=== PATIENT | female | born 1985 | race Caucasian/White ===

== ENCOUNTER 2019-06-04 14:26 | Emergency (ER) | payer OTHER, SELFPAY ==
[2019-06-04 16:21] VITALS: BP 134/55; PULSE 97; RESP 16; O2SAT 100
--- NOTE | 2019-06-04 16:51 | ED.DENTAL ---
HPI - Dental/Oral General Chief complaint: Dental/Oral Stated complaint: toothache/facial swelling Time Seen by Provider: 06/04/19 16:46 Source: patient Mode of arrival: ambulatory Limitations: no limitations History of Present Illness HPI Narrative: A 34 y/o female pt presents to the ED, with c/o tooth pain that began on Sunday (2 days ago). Pt states she tried getting into a dental clinic to get Abx for toothache but they were unable to get her in until Sunday and she will be out of town. She was seen at Urgent Care yesterday and was prescribed Ibuprofen and Augmentin, however this AM she woke up with worsening pain and swelling to the rt side of her mouth. Pt denies any significant PMHx. Complaint: tooth pain Location: Tooth # (30) Onset (ago): day(s) (2) Duration: worsening Relieving factors: nothing Associated symptoms: gum swelling Treatment prior to arrival: oral analgesic (Ibuprofen) Related Data Home Medications Medication Instructions Recorded Confirmed alprazolam 06/04/19 06/04/19 amoxicillin-pot clavulanate tablet 06/04/19 fluoxetine mg 06/04/19 ibuprofen 06/04/19 Allergies Allergy/AdvReac Type Severity Reaction Status Date / Time Sulfa (Sulfonamide Allergy Unknown Unknown Verified 06/04/19 16:43 Antibiotics) Review of Systems Review of Systems: All systems reviewed & are unremarkable except as noted in HPI and below Constitutional: Constitutional: Reports other (dental/mouth swelling) ENT: Reports dental pain and Reports other (tooth abscess) PMFSH Past Medical History Medical History (Updated 06/04/19 @ 17:30 by Eder Perez MD) Depression Irritable bowel Surgical History Surgical History (Updated 06/04/19 @ 17:13 by Viola Beavers WISErg) No significant past surgical history Social History Social History (Updated 06/04/19 @ 17:13 by Viola Beavers WISErg) Smoking status: Smoker, status unknown Gender identity (if verbalized by the patient): Female Exam Const: General: healthy appearing, no acute distress and alert Nutritional Appearance: well nourished Orientation/consciousness: patient oriented x3 HENMT: Other: Swelling over right mandible. Fluctuant area at the base of tooth #30 Resp: Effort & Inspection: normal respiratory effort Auscultation: clear to auscultation bilaterally Cardio: Rate: regular rate Rhythm: regular rhythm Skin: General skin exam: normal color Neuro: General: patient oriented x3 and moves all extremities Speech: normal speech Course Vital Signs Vital signs: Vital Signs Pulse Rate 97 06/04/19 16:21 Respiratory Rate 16 06/04/19 16:21 Blood Pressure 134/55 L 06/04/19 16:21 Pulse Oximetry 100 06/04/19 16:21 Pulse Rate 97 06/04/19 16:21 Respiratory Rate 16 06/04/19 16:21 Blood Pressure 134/55 L 06/04/19 16:21 Pulse Oximetry 100 06/04/19 16:21 Procedures Abscess I/D oral: Date of Incision: 06/04/19 Time of Incision: 17:29 Side (if applicable): right Local Anesthetic: lidocaine 1%, bupivacaine 0.5% and with epi Amount of anesthesia used (mL): 4 Technique: needle aspiration Amount of fluid expressed (mL): 2 Packing used?: none I&D Results: Pus MDM - Dental/Oral Differential Diagnosis Differential diagnosis: Likely dental abscess Medical Records Attestation: I reviewed the patient's medical records. Discharge Plan Discharge Clinical Impression: Dental abscess Patient Disposition: Home, Self-Care Condition: Stable Instructions: Antibiotic Form, Dental Abscess (ED) Prescriptions: No Action fluoxetine 40 mg capsule RF: 0 ibuprofen 800 mg tablet RF: 0 alprazolam 1 mg tablet RF: 0 amoxicillin-pot clavulanate 875-125 mg tablet RF: 0 Follow-up/Referrals: PHYSICIAN,COLD HEADER OPERATOR [Non-Staff] - Stand Alone Forms: Work/School Release IP Discharge Date/Time: 06/04/19 18:22
== END 2019-06-04 18:22 | disposition home or self-care (01) ==
LOC: ANHED 17:32
PROVIDERS: Emergency Provider Emergency Medicine
DX: K04.7 Periapical abscess without sinus (principal); F32.9 Major depressive disorder, single episode, unspecified
CPT/HCPCS: 41800; 99282

== ENCOUNTER 2020-05-13 11:06 | Emergency (ER) | payer OTHER, SELFPAY ==
--- NOTE | ~2020-05-13 | XR_ITS ---
EXAMINATION: XR abdomen/kub 1V INDICATION: Right flank pain TECHNIQUE: Supine views of the abdomen were obtained on 2 radiographs. COMPARISON: CT from today FINDINGS: Bowel contents obscure visualization of the small kidney stones seen on today's CT examinat ion. There is a phlebolith of the left pelvis. The bowel gas pattern is normal. The visualized osseou s structures are unremarkable. IMPRESSION: 1. No radiographic correlate for the patient's symptoms. Reviewed, dictated and finalized at location A. THERAPIST
--- NOTE | ~2020-05-13 | CT_ITS ---
EXAMINATION: CT abdomen pelvis wo con DATE: 05/13/2020 12:34 INDICATION: Right flank pain TECHNIQUE: Computed tomography (CT) of the abdomen and pelvis was performed without intravenous contr ast. The dose-length product (DLP) was 370.77 mGy-cm. Automated exposure control and iterative recons truction technique were employed. 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 The heart size is normal. The liver, spleen, pancreas, and adrenal glands are normal. Sto grayson are present in the nondistended gallbladder. Nonobstructing stones in the lower pole of the right kidney measure up to 2 mm. There is a 4 mm nonobstructing stone of the left kidney. No stones are pr esent in the ureters or bladder. There is no hydronephrosis or hydroureter. The appendix is normal. N o pathologically enlarged abdominal or pelvic lymph nodes are identified. There is no free intraperit troncoso gas or evidence of bowel obstruction. IMPRESSION: 1. Bilateral nonobstructing nephrolithiasis. No hydronephrosis or hydroureter. 2. Cholelithiasis without additional findings of cholecystitis. Reviewed, dictated and finalized at location A. L PLATER
[2020-05-13 11:23] VITALS: BP 119/72; PULSE 79; RESP 16; TEMP 36.2; O2SAT 98
[2020-05-13 11:33] LABS: Basophils Percent Auto 0.5 % (0.2-1.2); Eosinophils Absolute Auto 0.2 K/mm3 (0-0.3); Eosinophils Percent Auto 1.8 % (0-4.4); Hematocrit 42.2 % (37.0-47.0); Hemoglobin 14.1 g/dL (12.0-15.0); Immature Granulocyte Absolute 0.01 K/mm3 (0.00-0.031); Immature Granulocyte Percent A 0.1 % (0-0.5); Lymphocytes Absolute Auto 2.27 K/mm3 (0.9-3.2); Lymphocytes Percent Auto 25.8 % (18.3-44.2); Mean Corpuscular HGB Conc 33.4 g/dl (32-36); Mean Corpuscular Hemoglobin 29.6 pg (26-34); Mean Corpuscular Volume 88.7 fl (80-100); Mean Platelet Volume 9.4 fl (7.4-10.4); Monocytes Absolute Auto 0.5 K/mm3 (0.1-0.6); Monocytes Percent Auto 5.6 % (2.6-8.5); Neutrophils Absolute Auto 5.8 K/mm3 (1.3-6.7); Neutrophils Percent Auto 66.2 % (45.5-73.1); Platelet Count Result 333 k/mm3 (150-375); Red Blood Count 4.76 M/mm3 (4.2-5.4); Red Cell Distribution Width 12.6 % (11.5-14.5); White Blood Count 8.8 K/mm3 (4.5-10.0)
[2020-05-13 11:43] LABS: Add Urine Microscopic? YES; Amorphous Sediment Urine Few; Appearance Urine Clear (Clear); Bacteria Urine Trace /hpf; Bilirubin Urine Negative (Negative); Blood Urine 3+ (Negative); Color Urine Yellow (Yellow); Glucose Urine UA Negative (Negative); Ketones Urine Negative (Negative); Leukocyte Esterase Ur Negative LEU/UL (Negative); Mucus Urine Rare /lpf; Nitrate Urine Negative (Negative); Protein Urine 1+ mg/dL (Negative); RBC Urine 21-50 /hpf (0-2); Specific Grav Ur 1.014 (1.001-1.035); Squamous Epithelial Cell Urine Few /hpf (Few); Urobilinogen Urine Negative mg/dL (<2.0); WBC Urine 0-3 /hpf
[2020-05-13 11:47] LABS: Anion Gap 5 mmol/L (8-16); Blood Urea Nitrogen 10 mg/dL (7-17); Calcium 8.9 mg/dL (8.4-10.2); Carbon Dioxide 28 mmol/L (22-30); Chloride 107 mmol/L (98-107); Estimated CRCL calculation 135 ml/min; Estimated Glomerular Filt Rate > 60; Glucose 104 mg/dL (65-105); Sodium 140 mmol/L (137-145)
[2020-05-13] MEDS: KETOROLAC 30 MG/ML VIAL (*BKC) IV PUSH (13:16)
[2020-05-13 13:39] LABS: Alanine Aminotransferase 33 U/L (4-35); Alkaline Phosphatase 84 U/L (38-126); Aspartate Amino Transferase 28 U/L (14-36); Bilirubin,Total 0.5 mg/dL (0.2-1.3)
--- NOTE | 2020-05-13 13:40 | ED.CHESTPAIN ---
HPI - Chest Pain General Chief Complaint: Urogenital-Female Stated Complaint: flank pain Time Seen by Provider: 05/13/20 11:48 Source: patient Mode of arrival: ambulatory Limitations: no limitations History of Present Illness HPI narrative: Patient is a 35-year-old female who presents to emergency department for evaluation of right-sided CVA pain for the last day patient notes began as an aching pain patient denies any injury or trauma does note history of urolithiasis. Patient denies any diarrhea vaginal complaints or urinary symptoms or URI symptoms. On arrival patient in the room in no distress resting comfortably. Patient has taken ibuprofen with some improvement Related Data Home Medications Medication Instructions Recorded Confirmed alprazolam 06/04/19 06/04/19 fluoxetine mg 06/04/19 pantoprazole PO 05/13/20 05/13/20 Allergies Allergy/AdvReac Type Severity Reaction Status Date / Time Sulfa (Sulfonamide Allergy Unknown Unknown Verified 06/04/19 16:43 Antibiotics) Review of Systems Review of Systems: All systems reviewed & are unremarkable except as noted in HPI and below PMFSH Past Medical History Medical History (Updated 05/13/20 @ 13:50 by Sabas Galvez PA-C) Depression Irritable bowel Urolithiasis Surgical History Surgical History No significant past surgical history Social History Social History Smoking status: Smoker, status unknown Gender identity (if verbalized by the patient): Female Exam Narrative: Exam Narrative: GENERAL: Well-appearing, well-nourished, and in no acute distress. HEAD: Normocephalic, atraumatic. EYES: PERRLA and EOMI. ENT: Nares clear, no rhinorrhea or epistaxis. Mucous membranes moist. CHEST: Clear to auscultation. No respiratory distress. No wheezes rales or rhonchi HEART: Regular rate and rhythm. No murmur heard. Normal peripheral pulses. ABDOMEN: Soft, nontender, nondistended EXTREMITIES: Normal range of motion. No edema. SKIN: Warm, dry, no rash. NEURO: No focal deficits. Alert and oriented x3. PSYCH: Normal mood and affect. Course Course Emergency Course: Patient in the room in no distress aware of case findings treatment plan diagnosis agreeing to follow-up as directed with primary care patient with potentially past urolithiasis is currently on her menses which could also explain the blood in her urine. No other high risk changes in the imaging or evaluation patient's pain well controlled Vital Signs Vital signs: Vital Signs Temperature 97.2 F L 05/13/20 11:23 Pulse Rate 79 05/13/20 11:23 Respiratory Rate 16 05/13/20 11:23 Blood Pressure 119/72 05/13/20 11:23 Pulse Oximetry 98 05/13/20 11:23 Temperature 97.2 F L 05/13/20 11:23 Pulse Rate 79 05/13/20 11:23 Respiratory Rate 16 05/13/20 11:23 Blood Pressure 119/72 05/13/20 11:23 Pulse Oximetry 98 05/13/20 11:23 MDM - Chest Pain MDM Narrative Medical decision making narrative: Patient evaluated in the emergency department felt to likely have passed a kidney stone as etiology for his symptoms pain well controlled afebrile nontoxic-appearing no distress felt appropriate for outpatient reevaluation Lab Data Result diagrams: 05/13/20 11:27 05/13/20 11:27 Labs: Lab Results 05/13/20 05/13/20 05/13/20 Range/Units 11:27 11:27 11:27 WBC 8.8 (4.5-10.0) K/mm3 RBC 4.76 (4.2-5.4) M/mm3 Hgb 14.1 (12.0-15.0) g/dL Hct 42.2 (37.0-47.0) % MCV 88.7 (80-100) fl MCH 29.6 (26-34) pg MCHC 33.4 (32-36) g/dl RDW 12.6 (11.5-14.5) % Plt Count 333 (150-375) k/mm3 MPV 9.4 (7.4-10.4) fl Immature Gran % (Auto) 0.1 (0-0.5) % Neut % (Auto) 66.2 (45.5-73.1) % Lymph % (Auto) 25.8 (18.3-44.2) % [place] % (Auto) 5.6 (2.6-8.5) % Eos % (Auto) 1.8 (0-4.4) % Baso % (A
[2020-05-13 14:13] VITALS: BP 139/68; PULSE 84; RESP 17; O2SAT 98
== END 2020-05-13 14:15 | disposition home or self-care (01) ==
PROVIDERS: Emergency Medicine Emergency Medical Services; Emergency Provider Emergency Medicine; PCP Family Medicine
DX: R10.9 Unspecified abdominal pain (principal); K58.9 Irritable bowel syndrome, unspecified; F32.9 Major depressive disorder, single episode, unspecified; N20.0 Calculus of kidney; Z87.442 Personal history of urinary calculi; K80.20 Calculus of gallbladder without cholecystitis without obstruction
CPT/HCPCS: 36415; 74018; 74176; 80048; 80076; 81001; 81025; 85025; 96374; 96375; 99284; J0131; J1885

== ENCOUNTER 2022-12-30 13:45 | Emergency (ER) | payer SELFPAY ==
[2022-12-30 13:50] VITALS: BP 131/90; PULSE 93; RESP 20; TEMP 36.5; O2SAT 98
--- NOTE | 2022-12-30 14:08 | ECG_ITS ---
Measurements Intervals [place] Rate: 85 P: 50 LA: 152 QRS: 61 QRSD: 97 T: 35 QT: 372 QTc: 443 Interpretive Statements SINUS RHYTHM WITH SINUS ARRHYTHMIA ST ELEVATION IN DIFFUSE LEADS- CONSIDER PERICARDITIS OR EARLY REPOLARIZATION ABNORMALITY BASELINE ARTIFACT- I, II, III, AVR, AVL, AVF ABNORMAL ECG NO PREVIOUS ECG AVAILABLE FOR COMPARISON Electronically Signed On 12-30-2022 20:45:14 CDT by Jose Hurley D.O.
[2022-12-30 14:41] LABS: Glucose Point of Care 79 mg/dl (65-105)
[2022-12-30 14:46] LABS: Basophils Absolute Auto 0.05 K/mm3 (0.00-0.10); Basophils Percent Auto 0.5 % (0.0-1.0); Eosinophils Absolute Auto 0.15 K/mm3 (0.02-0.50); Eosinophils Percent Auto 1.6 % (1.0-6.0); Hematocrit 42.9 % (35.0-49.0); Hemoglobin 15.1 g/dL (12.0-15.0); Immature Granulocyte Absolute 0.04 K/mm3 (0.00-0.00); Immature Granulocyte Percent A 0.4 % (0.0-0.0); Lymphocytes Absolute Auto 2.27 K/mm3 (1.10-4.50); Lymphocytes Percent Auto 24.9 % (18.0-42.0); Mean Corpuscular HGB Conc 35.2 g/dL (32.0-36.0); Mean Corpuscular Hemoglobin 30.6 pg (27.0-31.0); Mean Corpuscular Volume 86.8 fL (78.0-102.0); Mean Platelet Volume 9.7 fl (9.2-11.8); Monocytes Absolute Auto 0.59 K/mm3 (0.10-0.90); Monocytes Percent Auto 6.5 % (2.0-11.0); Neutrophils Percent Auto 66.1 % (50.0-70.0); Platelet Count Result 322 K/mm3 (150-420); Red Blood Count 4.94 M/mm3 (4.20-5.40); Red Cell Distribution Width 11.9 % (11.6-14.4); White Blood Count 9.1 K/mm3 (4.8-10.8)
[2022-12-30 14:58] LABS: Amphetamine Screen Urine Negative (Negative); Appearance Urine Clear (Clear); Barbiturate Screen Urine Negative (Negative); Benzodiazepines Screen Urine Positive (Negative); Bilirubin Urine Negative (Negative); Blood Urine Negative (Negative); Cannabinoid Screen Urine Positive (Negative); Cocaine Screen Urine Negative (Negative); Color Urine Light Yellow (Yellow); Glucose Urine UA Negative (Negative); Ketones Urine Negative (Negative); Leukocyte Esterase Ur Negative LEU/UL (Negative); Methadone Screen Urine Negative (Negative); Nitrate Urine Negative (Negative); Opiate Screen Urine Negative (Negative); Phencyclidine Screen Urine Negative (Negative); Protein Urine Negative (Negative); Specific Grav Ur 1.015 (1.010-1.020)
[2022-12-30 15:01] LABS: Add Urine Microscopic? NO
[2022-12-30 15:05] LABS: Alanine Aminotransferase 25 U/L (14-59); Albumin Level 3.9 g/dL (3.4-5.0); Alkaline Phosphatase 95 U/L (46-116); Anion Gap 14 mmol/L (8-16); Aspartate Amino Transferase 13 U/L (15-37); Bilirubin,Total 0.8 mg/dL (0.00-1.00); Blood Urea Nitrogen 6 mg/dL (7-18); Calcium 9.4 mg/dL (8.5-10.1); Carbon Dioxide 23 mmol/L (21-32); Chloride 105 mmol/L (98-108); Estimated CRCL calculation 108 ml/min; Estimated Glomerular Filt Rate > 60; Glucose 96 mg/dL (70-99); Osmolality Calculated 291 mOsm/kg (285-295); Potassium 3.6 mmol/L (3.5-5.1); Salicylate 2.6 mg/dL (2.8-20.0); Sodium 142 mmol/L (136-145); Thyroid Stimulating Hormone 1.05 uIU/mL (0.36-3.74); Total Protein 7.2 g/dL (6.4-8.2)
[2022-12-30 15:08] LABS: Acetaminophen < 2 ug/mL (10-30); Ethanol < 3 mg/dL (0-6)
[2022-12-30 15:11] LABS: SARS-CoV-2 Ag Negative (Negative)
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
[2022-12-30] MEDS: ALPRAZolam (*CRX) 0.5 MG TABLET PO (15:51)
[2022-12-30 17:44] VITALS: BP 128/86; PULSE 88; RESP 20; TEMP 36.7; O2SAT 98
--- NOTE | 2022-12-30 17:46 | PC.NURSE ---
On 12/30/22, the student, [CATIA GIRON], provided care and completed [facility] documentation on this patient. I have reviewed the student's documentation and agree with the findings.
== END 2022-12-30 17:45 | disposition home or self-care (01) ==
PROVIDERS: Emergency Provider Emergency Medicine; PCP Nurse Practitioner Family
DX: F32.A Depression, unspecified (principal); F17.210 Nicotine dependence, cigarettes, uncomplicated; Z79.899 Other long term (current) drug therapy; Z20.822 Contact with and (suspected) exposure to COVID-19
CPT/HCPCS: 36415; 80053; 80307; 81003; 82948; 84443; 85025; 87426; 93005; 99283; A9270; C9803

== ENCOUNTER 2023-08-21 19:05 | Outpatient (RCR) | payer OTHER, SELFPAY ==
[2023-08-21] VITALS (16 sets, daily range): BP systolic 101–117; BP diastolic 45–58; PULSE 89–103; O2SAT 95–100
--- NOTE | 2023-08-21 20:45 | PC.NURSE ---
Called Dr. Mary Alice Stokes, update on pt, decreased movement upon arrival, tracing, blood pressure, and feeling baby move. Orders received to discharge pt with instructions on when to return to the unit.
--- NOTE | 2023-08-21 20:52 | PC.NURSE ---
Pt discharged with instructions to return to the unit with vaginal bleeding, leaking fluid, contractions, and decreased movement, pt verbalizes understanding, no other questions.
== END 2023-11-19 23:59 | disposition home or self-care (01) ==
LOC: ANHOBOP 19:05
PROVIDERS: PCP Nurse Practitioner Family; Visit Provider Obstetrics & Gynecology
DX: O36.8190 Decreased fetal movements, unspecified trimester, not applicable or unspecified (principal)
CPT/HCPCS: 59025

== ENCOUNTER 2023-11-16 03:36 | Inpatient (IN) | payer OTHER, SELFPAY ==
[2023-11-16] VITALS (123 sets, daily range): BP systolic 96–159; BP diastolic 33–123; PULSE 91–130; RESP 18; TEMP 36.8–37.3; O2SAT 96–100; BMI 37.4
[2023-11-16 04:14] LABS: Basophils Percent Auto 0.3 % (0.2-1.2); Eosinophils Absolute Auto 0.1 K/mm3 (0-0.3); Eosinophils Percent Auto 0.5 % (0-4.4); Hematocrit 36.7 % (37.0-47.0); Hemoglobin 12.4 g/dL (12.0-15.0); Immature Granulocyte Absolute 0.05 K/mm3 (0.00-0.031); Immature Granulocyte Percent A 0.4 % (0-0.5); Lymphocytes Absolute Auto 1.93 K/mm3 (0.9-3.2); Lymphocytes Percent Auto 17.1 % (18.3-44.2); Mean Corpuscular HGB Conc 33.8 g/dl (32-36); Mean Corpuscular Hemoglobin 29.2 pg (26-34); Mean Corpuscular Volume 86.4 fl (80-100); Mean Platelet Volume 10.4 fl (7.4-10.4); Monocytes Absolute Auto 0.8 K/mm3 (0.1-0.6); Monocytes Percent Auto 6.8 % (2.6-8.5); Neutrophils Absolute Auto 8.4 K/mm3 (1.3-6.7); Neutrophils Percent Auto 74.9 % (45.5-73.1); Platelet Count Result 276 k/mm3 (150-375); Red Blood Count 4.25 M/mm3 (4.2-5.4); Red Cell Distribution Width 14.2 % (11.5-14.5); White Blood Count 11.3 K/mm3 (4.5-10.0)
[2023-11-16] MEDS: AMPICILLIN 2 GM/NS 100 ML 2 GM/100 ML BAG IVPB (04:27)
[2023-11-16] MEDS: LACTATED RINGERS 500 ML 999 ML IV CONT (04:29)
--- NOTE | 2023-11-16 04:52 | LDADM ---
This patient, Hedy Henao, was admitted to Labor/Delivery/Recovery 106 on 11/16/23 at 03:36. Plans for labor, pain management and were discussed with patient. Patient/family oriented to hospital policies and general routines including ID bracelet, bed and alarms, visiting hours, pain management, procedures, bathroom and other care routines, personal items, smoking policy, room service/diet and guest tray routines, security routines, and visiting hours. Patient/Family are encouraged to report perceived risks to care and to ask questions if they do not understand what they are told or what they should do. See [facility] for further documentation.
[2023-11-16 05:00] LABS: Rapid Plasma Reagin Non-Reactive (NonReactive)
--- NOTE | 2023-11-16 05:34 | WPDANESEPP ---
Anes - Eval Pre Procedure Procedure: labor epidural Date/Time: 11/16/23 05:34 Surgeon: la Preop Diagnosis: pain during labor Pre Op Diagnosis: Contractions Patient Data Age: 38 Gender: F Height: 1.75 m Weight: 115 kg Last Vital Signs Pulse 100 11/16/23 05:33 BP 141/74 H 11/16/23 05:33 Pulse Ox 100 11/16/23 05:32 O2 Del Method Room Air 11/16/23 04:52 Allergies Allergy/AdvReac Type Severity Reaction Status Date / Time Sulfa (Sulfonamide Allergy Unknown Unknown Verified 11/09/23 13:20 Antibiotics) Home Medications Medication Instructions Recorded Confirmed Type bupropion HCl 300 mg 24 hr tablet, 300 mg PO DAILY 12/30/22 11/09/23 History extended release vits no.126-ferrous fum 1 tablet PO DAILY 11/09/23 11/09/23 History 28 mg iron-folic acid 800 mcg tablet (Classic ) sertraline 100 mg tablet 100 mg PO DAILY 11/09/23 11/09/23 History Laboratory Tests 11/16/23 04:09 WBC 11.3 H K/mm3 (4.5-10.0) RBC 4.25 M/mm3 (4.2-5.4) Hgb 12.4 g/dL (12.0-15.0) Hct 36.7 L % (37.0-47.0) MCV 86.4 fl (80-100) MCH 29.2 pg (26-34) MCHC 33.8 g/dl (32-36) RDW 14.2 % (11.5-14.5) Plt Count 276 k/mm3 (150-375) MPV 10.4 fl (7.4-10.4) Immature Gran % (Auto) 0.4 % (0-0.5) Neut % (Auto) 74.9 H % (45.5-73.1) Lymph % (Auto) 17.1 L % (18.3-44.2) [place] % (Auto) 6.8 % (2.6-8.5) Eos % (Auto) 0.5 % (0-4.4) Baso % (Auto) 0.3 % (0.2-1.2) Lymph # (Auto) 1.93 K/mm3 (0.9-3.2) [place] # (Auto) 0.8 H K/mm3 (0.1-0.6) Eos # (Auto) 0.1 K/mm3 (0-0.3) Baso # (Auto) 0.0 K/mm3 (0.0-0.1) Abs Immat Gran (auto) 0.05 H K/mm3 (0.00-0.031) Absolute Neuts (auto) 8.4 H K/mm3 (1.3-6.7) Absolute Nucleated RBC 0.000 K/mm3 (0.0-0.012) Nucleated RBC % 0.0 % (0.0-0.2) RPR Non-reactive (NonReactive) HIV 1&2 Ab/P24 Ag 4thGn Pending Blood Type A Positive Antibody Screen Negative Patient hx anesthesia problems: none Family hx anesthesia problems: none Results Review: All pre-operative results and documents have been reviewed as part of the pre-operative evaluation. [facility] Past Medical History Medical History (Updated 11/16/23 @ 05:35 by Darlene Wahl CRNA) Anxiety Depression Irritable bowel Obesity (BMI 30-39.9) Urolithiasis Surgical History Surgical History No significant past surgical history Family History Family History (Updated 11/09/23 @ 13:25 by Qing Diaz RN) Mother Multiple sclerosis Congestive heart failure Diabetes mellitus Sibling Multiple sclerosis Social History Social History Smoking packs per day: 0.5 Smoking cigarettes per day: 10.0 Years smoked: 16 Smoking pack-years: 8.00 Smoking status: Former smoker Substance use: current Substance use type: marijuana Do You Feel Safe in your Home?: Yes Lack of Transportation: No Lack of Food: Never True Current Housing: I Have Housing Concerned About Future Housing: No Difficulty Paying Gas/Electric Bills: No Difficulty Paying for Meds: No Currently Unemployed: No Education: High School Diploma/GED Difficulty w/ Childcare or Family Care: No Gender identity (if verbalized by the patient): Female Spiritual care concerns: No Exam Day of Procedure 11/16/23 05:34
[2023-11-16 06:13] LABS: HIV 1/2 Ab P24 Ag 1.38
[2023-11-16 06:21] LABS: HIV 1/2 Ab P24 Ag Result Reactive (Negative); HIVc Retest 1 1.31; HIVc Retest 2 1.38
--- NOTE | 2023-11-16 06:47 | PM.OBPRVD ---
OB - Vaginal Delivery Note Procedure Delivery date: 11/16/23 Induction method: None Delivery monitor: External FHT and External Uterine Route of delivery: Episiotomy description: None Laceration Description: None Quantitative Blood Loss (ml): 61 Anesthesia type: Epidural Disposition: Floor Complications: No immediate complications Narrative: The patient was admitted in active labor proceeded quickly from 5cm to complete was cold and she pushed and delivered the head spontaneously in the KALPESH position. Anterior posterior shoulder delivered spontaneously. Cord clamped x2 cut advanced off the table crying. Twenty-two Pitocin placed in a medial from the uterus. The baby did require a code home although it had great heart rate and cry on delivery. Mom and baby doing okay at the moment: Baby Date of : 11/16/23 Time of : 06:34 Gestational Age by Date: 37 Infant gender: Female presentation: vertex position: Left Occiput Anterior Placenta delivery description: Spontaneous Cord Vessel Description: 3 Vessels
--- NOTE | 2023-11-16 06:50 | PM.IMHP ---
H&P: HPI History of Present Illness Date/Time: 11/16/23 06:50 Chief Complaint: Labor at 37 weeks Narrative: 38-year-old 3 1 admitted at 37 weeks in active labor. She states the has been uncomplicated PMFSH Past Medical History Medical History Anxiety Depression Irritable bowel Obesity (BMI 30-39.9) Urolithiasis Surgical History Surgical History No significant past surgical history Family History Family History Mother Multiple sclerosis Congestive heart failure Diabetes mellitus Sibling Multiple sclerosis Social History Social History Smoking packs per day: 0.5 Smoking cigarettes per day: 10.0 Years smoked: 16 Smoking pack-years: 8.00 Smoking status: Former smoker Substance use: current Substance use type: marijuana Do You Feel Safe in your Home?: Yes Lack of Transportation: No Lack of Food: Never True Current Housing: I Have Housing Concerned About Future Housing: No Difficulty Paying Gas/Electric Bills: No Difficulty Paying for Meds: No Currently Unemployed: No Education: High School Diploma/GED Difficulty w/ Childcare or Family Care: No Gender identity (if verbalized by the patient): Female Spiritual care concerns: No Meds Home Medications and Allergies Home Medications Medication Instructions Recorded Confirmed Type bupropion HCl 300 mg 24 hr tablet, 300 mg PO DAILY 12/30/22 11/09/23 History extended release vits no.126-ferrous fum 1 tablet PO DAILY 11/09/23 11/09/23 History 28 mg iron-folic acid 800 mcg tablet (Classic ) sertraline 100 mg tablet 100 mg PO DAILY 11/09/23 11/09/23 History Allergies Allergy/AdvReac Type Severity Reaction Status Date / Time Sulfa (Sulfonamide Allergy Unknown Unknown Verified 11/09/23 13:20 Antibiotics) Vital Signs Vital Signs - 24 hr 11/16/23 04:00 11/16/23 04:30 11/16/23 04:47 Temperature Pulse Rate 100 128 H Blood Pressure 114/53 L 124/74 Pulse Oximetry 100 Oxygen Delivery 11/16/23 04:52 11/16/23 04:57 11/16/23 05:00 Temperature Pulse Rate 103 H Blood Pressure 134/75 Pulse Oximetry 100 100 Oxygen Delivery 11/16/23 05:02 11/16/23 05:07 11/16/23 05:12 Temperature Pulse Rate Blood Pressure Pulse Oximetry 100 100 100 Oxygen Delivery 11/16/23 05:17 11/16/23 05:18 11/16/23 05:20 Temperature Pulse Rate 104 H 126 H Blood Pressure 124/63 143/85 H Pulse Oximetry 100 Oxygen Delivery 11/16/23 05:22 11/16/23 05:23 11/16/23 05:25 Temperature Pulse Rate 106 H 94 Blood Pressure 151/69 H 142/66 H Pulse Oximetry 100 Oxygen Delivery 11/16/23 05:27 11/16/23 05:28 11/16/23 05:30 Temperature Pulse Rate 91 96 Blood Pressure 117/72 119/85 Pulse Oximetry 100 Oxygen Delivery 11/16/23 05:32 11/16/23 05:33 11/16/23 05:35 Temperature Pulse Rate 100 99 Blood Pressure 141/74 H 143/74 H Pulse Oximetry 100 Oxygen Delivery 11/16/23 05:37 11/16/23 05:38 11/16/23 05:40 Temperature Pulse Rate 101 H 99 Blood Pressure 138/123 H 133/73 Pulse Oximetry 100 Oxygen Delivery 11/16/23 05:42 11/16/23 05:43 11/16/23 05:45 Temperature Pulse Rate 106 H 100 Blood Pressure 149/87 H 150/77 H Pulse Oximetry 99 Oxygen Delivery 11/16/23 05:47 11/16/23 05:48 11/16/23 05:50 Temperature Pulse Rate 103 H 114 H Blood Pressure 135/60 121/62 Pulse Oximetry 99 Oxygen Delivery 11/16/23 05:52 11/16/23 05:53 11/16/23 05:56 Temperature Pulse Rate 106 H 104 H Blood Pressure 150/81 H 116/97 H Pulse Oximetry 100 98 Oxygen Delivery 11/16/23 06:00 11/16/23 06:01 11/16/23 06:06 Temperature 98.2 F
[2023-11-16] MEDS: OXYTOCIN 30 UNITS/NS 500 ML 30 UNITS/500 ML BAG 125 UNITS IV CONT (07:19)
[2023-11-16 10:02] LABS: Reference Lab Test Name HIV 1/2 AB +P24 AG
--- NOTE | 2023-11-16 12:11 | OBPPTRN ---
Patient transferred to post room #288 via wheelchair. Support person present. Oriented to unit, room, information board, rooming in, admission packet and security measures. Patient verbalizes understanding.
[2023-11-16 12:43] LABS: Amphetamine Screen Urine Negative (Negative); Barbiturate Screen Urine Negative (Negative); Benzodiazepines Screen Urine Negative (Negative); Cannabinoid Screen Urine Negative (Negative); Cocaine Screen Urine Negative (Negative); Methadone Screen Urine Negative (Negative); Opiate Screen Urine Negative (Negative); Phencyclidine Screen Urine Negative (Negative)
--- NOTE | 2023-11-16 13:45 | PC.NURSE ---
Breast pump provided due to [ transfer]. Instructions given on cleaning, care, usage, that there should be no pain, pumping schedule for milk production, collection, and storage of human milk. Patient was assessed for correct placement, flange size, to pump for comfort and nipple stretching/stimulation for adequate milk production every 3 hours (8 times in 24 hours) 1-2 times at night.?Mother voiced understanding of the education shared along with mom/baby guide and the pump measurement, flange fit handout for additional resource information. Reported to the Primary RN.
--- NOTE | 2023-11-16 15:05 | PC.NURSE ---
1500. This patient Hedy left with her mom and dad, via wheelchair on a 6 hr pass to visit her daughter in the [facility]. Pass approved by Dr Bass via telephone. She pumped for 15 min before she left.
--- NOTE | 2023-11-16 20:08 | PC.NURSE ---
Patient returned from [facility] to visit that was transferred to another facility at this time. This RN reoriented patient to policies and procedures and answered any questions from patient at this time.
[2023-11-17 04:38] VITALS: BP 100/65; PULSE 87; RESP 18; TEMP 36.5; O2SAT 97
[2023-11-17] MEDS: IBUPROFEN 600 MG TABLET PO (04:46)
[2023-11-17 05:14] LABS: Hematocrit 31.7 % (37.0-47.0); Hemoglobin 10.3 g/dL (12.0-15.0)
[2023-11-17 08:00] VITALS: BP 100/77; PULSE 85; RESP 17; O2SAT 100
--- NOTE | 2023-11-17 11:11 | PC.NURSE ---
Breast pump was at bedside. Mother states that she was not given instructions on how often to pump and that she has only pumped once since infants . Education provided regarding frequency of pumping and reiterated the importance of pumping on schedule when is away. Infant was transferred to [facility]. Instructions given on cleaning, care, usage, that there should be no pain, pumping schedule for milk production, collection, and storage of human milk. Patient was assessed for correct placement, flange size, to pump for comfort and nipple stretching/stimulation for adequate milk production every 3 hours (8 times in 24 hours) 1-2 times at night. Handouts were given to patient re. pump education. Mother encouraged to record the pumping schedule on the feeding sheet.?Mother voiced understanding of the education shared along with mom/baby guide and the pump measurement, flange fit handout for additional resource information. Reported to the Primary RN.
--- NOTE | 2023-11-17 11:39 | PM.OBPNVD ---
OB - PN: Subj Subjective Date/time seen: 11/17/23 11:39 Narrative: Pain OK. Would like to be discharged. OB - PN: Obj Data Labs 11/17/23 04:43 Labs: Laboratory Results - last 24 hr 11/16/23 11/17/23 11:47 04:43 Hgb 10.3 L Hct 31.7 L Urine Opiates Screen Negative Urine Methadone Screen Negative Ur Barbiturates Screen Negative Ur Phencyclidine Scrn Negative Ur Amphetamine Screen Negative U Benzodiazepines Scrn Negative Urine Cocaine Screen Negative U Cannabinoids Screen Negative OB - PN A/P Plan day: 1 Comments: A: PPD#1, doing well. P: Home to f/u 6 weeks. Exam Psych: Other: AVSS ABD soft, nontender, fundus firm EXT nontender
--- NOTE | 2023-11-17 11:40 | PM.OBDSVD ---
DS: Admitting Diagnosis Discharge Date 11/17/23 Admitting Diagnosis IUP at 37 weeks with labor DS: Discharge Diagnosis Discharge Diagnosis (1) (normal spontaneous vaginal delivery): Code(s): O80 - Encounter for full-term uncomplicated delivery Status: Acute OB - DS: Summary Hospital Course Hospital Course: Admitted with labor. Baby was transferred to [facility]. Mom had positive rapid HIV test, but confirmatory test was negative. OB Procedures : None OB Procedures Intrapartum: Spontaneous Vag Delivery OB Procedures: : None Peripartum Data Laceration Description: None Episiotomy description: None Time Spent with Patient Time attestation: Total time spent providing and/or coordinating discharge services: DS: Data Data Completed and Pending Labs on day of discharge: Labs from last 24 hours 11/17/23 11/16/23 04:43 11:47 Hgb 10.3 L Hct 31.7 L Urine Opiates Screen Negative Urine Methadone Screen Negative Ur Barbiturates Screen Negative Ur Phencyclidine Scrn Negative Ur Amphetamine Screen Negative U Benzodiazepines Scrn Negative Urine Cocaine Screen Negative U Cannabinoids Screen Negative Discharge Plan Discharge Attending physician on discharge: Rich Bass Discharging Clinician: Rich Bass Patient Disposition: Home, Self-Care Activity: pelvic rest Diet: regular Discharge Instructions: Call or return if temperature above 100.4? F, increased abdominal pain, increased vaginal bleeding or any new problems. Stand Alone Forms: General Discharge Information Follow-up/Referrals: Rich Bass MD [Physician] - 6 Weeks Discharge Medications: New ibuprofen 600 mg tablet 600 mg PO Q6H PRN (Reason: cramps) Qty: 30 0RF Continued bupropion HCl 300 mg tablet extended release 24 hr 300 mg PO DAILY sertraline 100 mg Tablet 100 mg PO DAILY Classic 28 mg iron- 800 mcg Tablet 1 tablet PO DAILY Date of admission: 11/16/23 03:36 Primary Care Provider: Vince,Radha Simpson Admitting Provider: Rich Bass Attending physician on admission: Rich Bass Condition: Stable
--- NOTE | 2023-11-17 12:48 | PCCCNOTE ---
Care Coordination. Patient referred to CC for positive THC during . Met with mother and many family members at bedside. Pt. reports having much family support. She denies THC use being an issue and UDS was negative at admission. Provided her with resources for food, WIC, and childcare. Also gave her a basket of baby care items. Infant was transferred to [facility], so she plans to go there today after discharge. She lives with FOB and older child. She denies any further resource needs.
[2023-11-19 08:35] LABS: Reference Lab Test Name HIV-1 RNA Result
--- NOTE | 2023-11-19 09:54 | PC.NURSE ---
0845 Received call from Customer Service Voice Peggy Guthrie. All confirmatory testing ordered and done at [facility] was reported as negative this AM. 09 Dr Bass returned call and negative lab reported. 924 Notified patient, [facility] and Care Coordination of negative lab. 939 Message left with Pharmacy regarding negative lab. 954 Preliminary Positive form with negative result faxed to Florencia Mora at [facility]. Message left on phone.
== END 2023-11-17 13:00 | disposition home or self-care (01) | DRG 807 ==
LOC: ANHLDR 12:02 → ANHOB2 12:12
PROVIDERS: Admitting Provider Obstetrics & Gynecology; PCP Family Medicine; Visit Provider Obstetrics & Gynecology
DX: O99.824 Streptococcus B carrier state complicating childbirth (principal); Z37.0 Single live birth; O99.344 Other mental disorders complicating childbirth; O99.214 Obesity complicating childbirth; F32.A Depression, unspecified; Z3A.37 37 weeks gestation of pregnancy; Z87.891 Personal history of nicotine dependence
CPT/HCPCS: 36415; 80307; 85014; 85018; 85025; 86592; 86703; 86850; 86900; 86901; 87389; A9270; G0432; J0290; J2590; J2795; J7120

== ENCOUNTER 2024-12-18 10:14 | Emergency (ER) | payer OTHER, SELFPAY ==
[2024-12-18 10:24] VITALS: BP 121/71; PULSE 86; RESP 22; TEMP 36.6; O2SAT 98
--- OUTSIDE RECORDS SUMMARY | 2024-12-18 10:50 | XMS_ITS | Clinical Summary ---
Author Organization [facility] Address [address] [place] [address] Care Team Providers Care Grape Pruner Name Role Phone Unavailable Primary Care Provider Unavailabl e Allergies Active Allergy Reactions Criticality Noted Date Comments Sulfa (Sulfonamide Antibiotics) Hives High 05/03 Medications Low-Ogestrel, 28, 0.3-30 mg-mcg Tablet 0 Active ondansetron (Zofran ODT) 4 mg Tablet, Rapid DissolveIndicati ons:Non-intracta ble vomiting with nausea, unspecified vomiting type Take 1 Tablet (4 mg) by mouth every 8 hours as needed for Nausea/Emesis . Dissolve tablet on top of tongue, then swallow with saliva. 10 Tablet 0 Active pantoprazole (PROTONIX) 40 mg Tablet, Delayed Release (E.C.) Take 1 Tablet (40 mg) by mouth daily. 30 Tablet 6 0 Active FLUoxetine (PROzac) 40 mg capsuleIndicatio ns:Anxiety state,Major depressive disorder with single episode, in full remission Take 1 Capsule (40 mg) by mouth daily. 90 Capsule 3 0 Active multivit,calc,mi ns/iron/folic (ONE-A-DAY WOMENS FORMULA ORAL) Take by mouth daily. gummy Active HYDROcodone-acet aminophen (NORCO) 5-325 mg tabletIndication s:Cervical herniated disc Take 1-2 Tablets by mouth every 4 hours as needed for Pain, Moderate. Max Daily Amount: 12 Tablets 42 Tablet 1 Active cyclobenzaprine (FLEXERIL) 10 mg tabletIndication s:Cervical herniated disc Take 1 Tablet (10 mg) by mouth 3 times daily as needed for Spasm. 30 Tablet 1 1 Active ALPRAZolam (XANAX) 1 mg tabletIndication s:Anxiety,Histor y of panic attacks Take 1 Tablet (1 mg) by mouth nightly as needed for Anxiety or Other (See Comment) (panic attack). 15 Tablet 1 Active Active Problems Problem Noted Date Diagnosed Date Family history of MS (multiple sclerosis) 2018 Anxiety state 03/01/2018 History of panic attacks 03/01/2018 Major depressive disorder wi th single episode, in full remission 03/01/2018 Tobacco use 01/15/2018 Family history of breast cancer 05/18/2017 Immunizations Immunization Administration Dates Next Due (ADACEL/BOOSTRIX)(10 YR UP) TDAP VACCINE, 0.5ML, IM 04/02/2014 INFLUENZA VACCINE QUADRIVALENT 3 YR UP PF IM INFLUENZA VACCINE QUADRIVALENT 6 MOS UP IM 01/15 INFLUENZA VACCINE QUADRIVALENT 6 MOS UP PF IM Family History Medical History Relation Name Comments Multiple Sclerosis Brother 1 Depression Brother 2 Aman Hypertension Father Diabetes Maternal Grandfather Renato Heart Attack Maternal Grandfather Renato Heart Disease Maternal Grandfather Renato o f a heart attack in '96. High Cholesterol Maternal Grandfather Renato Hypertension Maternal Grandfather Renato Anemia Maternal Grandmother Cordova Breast Cancer Maternal Grandmother Susana Cancer Maternal Grandmother Susana Breast Cancer Heart Disease Maternal Grandmother Susana hannon suffering from congestive heart failure. Hemophilia Maternal Grandmother Cordova High Cholesterol Maternal Grandmother [place] Hypertension Maternal Grandmother Susana Diabetes Mother Polly Heart Disease Mother Polly Multiple stint s and a double bypass 6 years ago. Hemophilia Mother Polly High Cholesterol Mother Polly Hypertension Mother Polly Multiple Sclerosis Mother Polly Cancer Paternal Grandfather Krish Pancrea tic Cancer Diabetes Paternal Grandfather Krish High Cholesterol Paternal Grandfather Krish Hypertension Paternal Grandfather Krish Respiratory Disease Paternal Grandfather Krish Aneurysm Paternal Grandmother Brain Heart Disease Paternal Grandmother High Cholesterol Paternal Grandmother Hypertension Paternal Grandmother Depression Sister 2 Mag No Known Problems Son Colon Cancer Neg Hx Relation Name Status Comments Brother 1 Alive Brother 2 Aman Father Alive Maternal Grandfather Renato Maternal Grandmother Cordova Alive Mother Polly Alive Paternal Grandfather Krish Alive Paternal Grandmother Alive Sister 1 Alive Sister 2 Mag Son Alive Social History Tobacco Use Types Packs/Day Years Used Date Smoking Tobacco: Every Day Cigarettes 0.5 15 Smokeless Tobacco: Never Tobacco Cessation:Ready to Q uit: No; Counseling Given: Yes Alcohol Use Standard Drinks/Week Comments No 0 (1 standard drink = 0.6 oz pur e alcohol) Comments No Sex and Gender Information Value Date Recorded Sex Assigned at Not on file 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 Gender Identity Not on file Sexual Orientation Not on file Last Filed Vital Signs Vital Sign Reading Time Taken Comments Blood Pressure 118/70 08/23/2020 1:24 PM CDT Pulse 92 08/23/2020 1:24 PM CDT Temperature 36.6 C (97.9 F) 08/23/2020 1:24 PM CDT Respiratory Rate 18 08/23/2020 1:24 PM CDT Oxygen Saturation 97% 08/11/2020 12:32 PM CDT Inhaled Oxygen Concentration - - Weight 94.3 kg (208 lb) 08/23/2020 1:24 PM CDT Height 175.3 cm (5' 9) 08/23/2020 1:24 PM CDT Body Mass Index 30.72 08/23/2020 1:24 PM CDT Plan of Treatment Health Maintenance Due Date Last Done Comments HEPATITIS B VACCINES (1 of 3 - 19+ 3-dose series) 2006 HPV/Cotest (21-29) 2008 HPV VACCINES (1 - 3-dose SCD M series) 2014 HPV/Cotest (30-65) 2017 CERVICAL CANCER SCREENING 02/15/2021 PAP SMEAR 02/15/2021 02/15/2018 (Prev iously completed), 04/02/2014 (Previously completed) DTAP/TDAP/TD VACCINES (2 - T d or Tdap) 04/02/2024 04/02/2014 INFLUENZA VACCINE (#1) 2024 9, 01/15/2018, 01/15/2017 Medical Devices Implanted Type Area Claims Investigator Device Identifier Shelf Expiration Date Model / Serial / Lot Plate Uniplate I Lvl 16mm [id number] - Sload 18 Implanted:Qt y: 1 on 08/10/2020 by Ashvin Chapin MD at [facility] Plate N/A: Spine Cervical Anterior [employer] [id number] / LOAD 18 / Description:All Depuy cervic al hardware was processed on requisition, [id number]. Screw Uniplate Sd 14mm - Sload 18 Implanted:Qt y: 2 on 08/10/2020 by Ashvin Chapin MD at [facility] Screw N/A: Spine Cervical Anterior [employer] / LOAD 18 / Allograft Spacer Acf 7mm [id number] - [id number] Implanted:Qt y: 1 on 08/10/2020 by Ashvin Chapin MD at [facility] Tissue N/A: Spine Cervical Anterior MUSCULOSKELETAL TRANSPLANT FOU 02/03/2025 [id number] / [id number] / Insurance RX [employer] Express Advance Directives For more information, please contact: [phone] * Full Code (Latest Code Status on File) Date Activated Date Inactivated Comments 08/10/2020 8:01 PM 08/11/2020 3:17 PM * Full Code Date Activated Date Inactivated Comments 08/10/2020 2:52 PM 08/10/2020 8:01 PM * Full Code Date Activated Date Inactivated Comments 08/26/2019 10:37 AM 08/26/2019 3:16 PM
--- OUTSIDE RECORDS SUMMARY | 2024-12-18 10:50 | XMS_ITS | Clinical Summary ---
Author Organization [facility] Address [address] [place] [address] Care Team Providers Care Community Marketing Coordinator Name Role Phone Alise Gutierrez OMA-FIRE PREVENTION INSPECTOR Primary Care Provider + Source Comments [facility],non-owned Affiliates and Associated Physician Practices is amultiple site organization consisting of ambulatory clinics and hospital sitesin [place], [place], [place]. This disclosure is being madepursuant to the Care Everywhere program and may not contain all information available regarding this patient. Last updated 17.[facility] [employer] Allergies Active Allergy Reactions Criticality Noted Date Comments Sulfamethazine Anaphylaxis High 08/30/2022 Social History Tobacco Use Types Packs/Day Years Used Date Smoking Tobacco: Every Day Cigarettes Smokeless Tobacco: Never Tobacco Cessation:Ready to Q uit: No; Counseling Given: No Alcohol Use Standard Drinks/Week Comments Not Currently 0 (1 standard drink = 0.6 oz pur e alcohol) Quit 7 years ago AUDIT-C Answer Date Recorded Q1: How often do you have a drink containing alcohol? Never 08/30/2022 Q2: How many drinks containi ng alcohol do you have on a typical day when you are drinking? Patient does not drink Q3: How often do you have si x or more drinks on one occasion? Never 08/30/2022 PHQ-2 Answer Date Recorded PHQ2 TOTAL SCORE 6 08/30/2022 Comments Unknown Sex and Gender Information Value Date Recorded Sex Assigned at Not on file Legal Sex Female 5:36 AM CONSTRUCTION SITE CROSSING GUARD Gender Identity Not on file Sexual Orientation Not on file Last Filed Vital Signs Vital Sign Reading Time Taken Comments Blood Pressure 102/55 08/30/2022 2:52 PM CDT Pulse 74 08/30/2022 2:52 PM CDT Temperature 36.6 C (97.9 F) 08/30/2022 2:52 PM CDT Respiratory Rate 20 08/30/2022 2:52 PM CDT Oxygen Saturation - - Inhaled Oxygen Concentration - - Weight 87.6 kg (193 lb 3.2 oz) 08/30/2022 2:52 P M CDT Height 175.3 cm (5' 9) 08/30/2022 2:52 PM CDT Body Mass Index 28.53 08/30/2022 2:52 PM CDT Plan of Treatment Health Maintenance Due Date Last Done Comments HIV SCREENING 2002 HEPATITIS C SCREENING 03/25/2005 DTAP/TDAP/TD VACCINES (1 - Tdap) 2006 HEPATITIS B VACCINE (1 of 3 - 19+ 3-dose series) 2006 PNEUMOCOCCAL VACCINE (1 of 2 - PCV) 2006 PAP SMEAR 2008 HPV VACCINE (1 - 3-dose SCDM series) 2014 DEPRESSION SCREENING 04/02/2024 08/30/2022 COVID-19 VACCINE (1 - 2023-2 5 season) 2024 INFLUENZA VACCINE (#1) 2024 9, 01/15/2018, 01/15/2017 ZOSTER VACCINE (1 of 2) 2037 HIB VACCINE Aged Out No longer eligi ble based on patient's age to complete this topic MENINGOCOCCAL (Group B) VACCINE SHARED DECISION-MAKING Aged Out No longer eligible based on patient's age to complete this topic MENINGOCOCCAL GROUPS A/C/Y/W VACCINE Aged Out No longer eligible b ased on patient's age to complete this topic Insurance [employer] Care Teams Community Marketing Coordinator Relationship Specialty Start Date End Date Alise Gutierrez APRN-KT [address] [place] [address] PCP - General Nurse Practitioner Psychiatric Mental Health 08/30/22
--- NOTE | 2024-12-18 11:05 | PC.NURSE ---
On 12/18/24, the student, [santosh clark ], provided care and completed [employer] documentation on this patient. I have reviewed the student's documentation and agree with the findings.
[2024-12-18] MEDS: ALPRAZolam (*CRX) 0.5 MG TABLET PO (11:08)
--- NOTE | 2024-12-18 11:20 | ED.GENADULT ---
HPI - General Adult General Chief complaint: Unspecified Stated complaint: altered mental status Time Seen by Provider: 12/18/24 10:57 Source: patient and EMS Mode of arrival: ambulatory Limitations: no limitations History of Present Illness HPI narrative: this is a 39-year-old female with some history of anxiety depression currently on antidepressant medication has not been on her Xanax and had some emotional instability after verbal altercation with her significant other. Patient is tearful but some voices that she is having increased anxiety without suicidal ideation no homicidal ideations. Onset (ago): hour(s) Severity: moderate Related Data Home Medications ?Medication ?Instructions ?Recorded ?Confirmed ?Last Taken ?Type bupropion HCl 300 mg 24 hr tablet, 300 mg PO DAILY 12/30/22 11/09/23 1 Day Ago History extended release ~11/08/23 sertraline 100 mg tablet 100 mg PO DAILY 11/09/23 11/09/23 1 Day Ago History ~11/08/23 gabapentin 100 mg capsule 100 mg PO Q12H 12/18/24 Unknown History Allergies Allergy/AdvReac Type Severity Reaction Status Date / Time Sulfa (Sulfonamide Allergy Unknown Unknown Verified 12/18/24 10:42 Antibiotics) Review of Systems Review of Systems: All systems reviewed & are unremarkable except as noted in HPI and below PMFSH Past Medical History Medical History Obesity (BMI 30-39.9) Anxiety Urolithiasis Depression Irritable bowel Surgical History Surgical History No significant past surgical history Family History Family History Mother Multiple sclerosis Congestive heart failure Diabetes mellitus Sibling Multiple sclerosis Social History Social History Smoking packs per day: 0.5 Smoking cigarettes per day: 10.0 Years smoked: 16 Smoking pack-years: 8.00 Smoking status: Former smoker Substance use: current Substance use type: marijuana Do You Feel Safe in your Home?: Yes Lack of Transportation: No Lack of Food: Never True Current Housing: I Have Housing Concerned About Future Housing: No Difficulty Paying Gas/Electric Bills: No Difficulty Paying for Meds: No Currently Unemployed: No Education: High School Diploma/GED Difficulty w/ Childcare or Family Care: No Gender identity (if verbalized by the patient): Female Spiritual care concerns: No Exam Const: General: cooperative, healthy appearing, comfortable and no acute distress Neck: Neck: normal visual inspection, full ROM and no lymphadenopathy Chest: Chest palpation & inspection: normal inspection of the chest Resp: Effort & Inspection: normal respiratory effort and able to speak in complete sentences Auscultation: clear to auscultation bilaterally Cardio: Jugular venous distension: no JVD Palpation: normal PMI Rate: regular rate Rhythm: regular rhythm Heart sounds: S1 normal heart sound present and S2 normal heart sound present GI: Inspection: normal to inspection Skin: General skin exam: normal color and no rashes or lesions noted Neuro: General: oriented to person, oriented to place, oriented to time and patient oriented x3 Psych: Appearance: disheveled Affect: Labile affect present and Anxious affect present Course Course Emergency Course: Patient received a dose of p.o. Xanax after reassessment patient's symptoms have improved patient is less anxious and will send medication to her local pharmacy and advised her to follow-up with her primary and psychiatrist. Vital Signs Vital signs: Vital Signs Temperature 36.6 C 12/18/24 10:24 Pulse Rate 86 12/18/24 10:24 Respiratory Rate 22 H 12/18/24 10:24 Blood Pressure 121/71 12/18/24 10:24 Pulse Oximetry 98 12/18/24 10:24 Oxygen Delivery Room Air 12/18/24 10:24 Temperature 36.6 C 12/18/24 10:24 Pulse Rate 86 12/18/24 10:24 Respiratory Rate 22 H 12/18/24 10:24 Blood Pressure 121/71 12/18/24 10:24 Pulse Oximetry 98 12/18/24 10:24 Oxygen Delivery Room Air 12/18/24 10:24 Medical Decision Making Vital Signs Vital Signs: Vital Signs Temperature 36.6 C 12/18/24 10:24 Pulse Rate 86 12/18/24 10:24 Respiratory Rate 22 H 12/18/24 10:24 Blood Pressure 121/71 12/18/24 10:24 Pulse Oximetry 98 12/18/24 10:24 Oxygen Delivery Room Air 12/18/24 10:24 Temperature 36.6 C 12/18/24 10:24 Pulse Rate 86 12/18/24 10:24 Respiratory Rate 22 H 12/18/24 10:24 Blood Pressure 121/71 12/18/24 10:24 Pulse Oximetry 98 12/18/24 10:24 Oxygen Delivery Room Air 12/18/24 10:24 Critical Care Time Critical Care Time Critical Care Time: No Discharge Plan Discharge Clinical Impression: Anxiety Patient Disposition: Home Condition: Stable Instructions: Antibiotic Form, Anxiety (ED) Additional Instructions: advised patient to take medication as prescribed and to follow with Primary/psychiatrist for further evaluation treatment. Patient Language: Luxembourgish Prescriptions: New alprazolam [Xanax] 0.5 mg tablet 0.5 mg PO BID PRN (Reason: anxiety) Qty: 30 0RF No Action bupropion HCl 300 mg tablet extended release 24 hr 300 mg PO DAILY gabapentin 100 mg capsule 100 mg PO Q12H sertraline 100 mg Tablet 100 mg PO DAILY Follow-up/Referrals: Vince,Radha Simpson MD [Primary Care Provider, Unknown] Time of Disposition: 11:25
[2024-12-18 11:50] VITALS: BP 114/65; PULSE 77; RESP 20; TEMP 36.7; O2SAT 100
--- OUTSIDE RECORDS SUMMARY | 2024-12-18 11:51 | XMS_ITS | Clinical Summary ---
Author Organization [facility] Address [address] [place] [address] Care Team Providers Care Orchard Sprayer Name Role Phone Alise Gutierrez OMA-BREAD ICER Primary Care Provider + Source Comments [facility],non-owned Affiliates and Associated Physician Practices is amultiple site organization consisting of ambulatory clinics and hospital sitesin [place], [place], [place] and [place]. This disclosure is being madepursuant to the Care Everywhere program and may not contain all information available regarding this patient. Last updated 17.[facility] Allergies Active Allergy Reactions Criticality Noted Date [...] on file Legal Sex Female 5:36 AM WEB SERVICES DEVELOPER Gender Identity Not on file Sexual Orientation [...] complete this topic Insurance [employer] Care Teams Orchard Sprayer Relationship Specialty Start Date End Date Alise Gutierrez APRN-KT [address] [place] [address] PCP - General Nurse Practitioner Psychiatric Mental Health 08/30/22
--- OUTSIDE RECORDS SUMMARY | 2024-12-18 11:51 | XMS_ITS | Clinical Summary ---
Author Organization [facility] Address [address] [place] [id number] Care Team Providers Care Seat Maker Name Role Phone Radha Clarke MD Primary Care Provider [phone] Allergies Active Allergy Reactions Criticality Noted Date Comments Sulfa Antibiotics Hives High 05/18/2017 Medications buPROPion XL (WELLBUTRIN XL) 300 MG 24 hr tablet Take 1 tablet (300 mg total) by mouth daily. Active sertraline (ZOLOFT) 50 MG tablet Take 1 tablet (50 mg total) by mouth daily. Active Active Problems Problem Noted Date Diagnosed Date ([facility]) 09/03/2023 Social History Tobacco Use Types Packs/Day Years Used Date Smoking Tobacco: Former Cigarettes Q uit: 01/22/2023 Smokeless Tobacco: Never Tobacco Cessation:Counseling Given: Not Answered Alcohol Use Standard Drinks/Week Comments Not Currently 0 (1 standard drink = 0.6 oz pur e alcohol) B1300 Health Literacy Answer Date Recor ded How often do you need to hav e someone help you when you read instructions, pamphlets, or other written material from your doctor or pharmacy? Sometimes 09/03/2023 [facility] Utilities Answer Date Recorded In the past 12 months has th e electric, gas, oil, or water company threatened to shut off services in your home? No 09/03/2023 Humiliation, Afraid, Rape, and Kick questionnair e Answer Date Recorded Within the last year, have y ou been afraid of your partner or ex-partner? No 09/03/2023 Within the last year, have y ou been humiliated or emotionally abused in other ways by your partner or ex-partner? No Within the last year, have y ou been kicked, hit, slapped, or otherwise physically hurt by your partner or ex-partner? No 09/03/2023 Within the last year, have y ou been raped or forced to have any kind of sexual activity by your partner or ex-partner? No 09/03/2023 Social Connection and Isolat ion Panel [NHANES] Answer Date Recorded In a typical week, how many times do you talk on the phone with family, friends, or neighbors? More than three times a week 09/03/2023 How often do you get togethe r with friends or relatives? More than three times a week 09/03/2023 How often do you attend chur ch or oriental orthodox services? Never 09/03/2023 Do you belong to any clubs o r organizations such as sikh groups, unions, fraternal or athletic groups, or school groups? No 09/03/2023 How often do you attend meet ings of the clubs or organizations you belong to? Never 09/03/2023 Are you , , di vorced, , never , or living with a partner? Living with partner 09/03/2023 AUDIT-C Answer Date Recorded Q1: How often do you have a drink containing alcohol? Never 09/03/2023 Q2: How many drinks containi ng alcohol do you have on a typical day when you are drinking? Patient does not drink Q3: How often do you have si x or more drinks on one occasion? Never 09/03/2023 Overall Financial Resource Strain (CARDIA) Answe r Date Recorded How hard is it for you to pa y for the very basics like food, housing, medical care, and heating? Not very hard 09/03/2023 [facility] [place] [facility] - Occupational Stress Questionnaire Answer Date Recorded Do you feel stress - tense, restless, nervous, or anxious, or unable to sleep at night because your mind is troubled all the time - these days? Only a little 09/03/2023 Exercise Vital Sign Answer Date Recorde d On average, how many days pe r week do you engage in moderate to strenuous exercise (like a brisk walk)? 3 days On average, how many minutes do you engage in exercise at this level? Patient declined 09/03/2023 Hunger Vital Sign Answer Date Recorded Within the past 12 months, y ou worried that your food would run out before you got the money to buy more. Sometimes true Within the past 12 months, t he food you bought just didn't last and you didn't have money to get more. Never true 06/2023 PRAPARE - Transportation Answer Date Re corded In the past 12 months, has l ack of transportation kept you from medical appointments or from getting medications? No 06/2023 In the past 12 months, has l ack of transportation kept you from meetings, work, or from getting things needed for daily living? No 09/03/2023 Housing Stability Vital Sign Answer Den e Recorded In the last 12 months, was t here a time when you were not able to pay the mortgage or rent on time? No 09/03/2023 In the past 12 months, how m any times have you moved where you were living? 0 09/03/2023 At any time in the past 12 m [facility], were you homeless or living in a penitentiary (including now)? 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 Gender Identity Not on file Sexual Orientation Not on file Last Filed Vital Signs Vital Sign Reading Time Taken Comments Blood Pressure 104/53 09/06/2023 11:09 AM CDT Pulse 95 09/06/2023 11:09 AM CDT Temperature 36.8 C (98.2 F) 09/06/2023 11:09 AM CDT Respiratory Rate 16 09/06/2023 11:09 AM CDT Oxygen Saturation 97% 09/06/2023 11:09 AM CDT Inhaled Oxygen Concentration - - Weight 106.6 kg (235 lb) 09/03/2023 3:00 PM CDT Height 172.7 cm (5' 8) 09/03/2023 3:00 PM CDT Body Mass Index 35.73 09/03/2023 3:00 PM CDT Plan of Treatment Health Maintenance Due Date Last Done Comments Cervical Cancer Screening Pap Smear (Age 30 to 64) Every 3 Years 1987 Annual Physical 1990 Hepatitis C 2005 HPV Vaccines (1 - 3-dose SCDM series) 2014 Cervical Cancer Screening Pap with HPV Testing (Age 30 to 64) Every 5 Years 2017 Cervical Cancer Screening with HPV 2017 DTaP, Tdap and Td Vaccines (8 - Td or Tdap) 11/07/2024 11/07/2014, 04/02/2014, 11/15/1992, Additional history exists COVID-19 Vaccine ( season) 2024 07/16/2020, 06/18/2020 Hepatitis B Vaccines Completed 02/05/1998, 09/04/1997, 07/31/1997 Meningococcal B Vaccine Aged Out No l onger eligible based on patient's age to complete this topic Meningococcal Vaccine Aged Out No angy miri eligible based on patient's age to complete this topic Pneumococcal Vaccine: Pediatrics (0 to 5 Years) and At-Risk Patients (6 to 49 Years) Aged Out No longer eligible based on patient's age to complete this topic RSV Immunizations Under 20 Months Aged Out No longer eligible based on patient's age to complete this topic Medical Devices Implanted Type Area Blindstitch Machine Operator Device Identifier Shelf Expiration Date Model / Serial / Lot Cage Spinal 14x6mm Anatomic 11mm Peek Ptc Radiopaque Cervical Interbody Fusion Sterile - [id number] Implanted:Qty: 1 on 09/05/2023 by Bartolo Lazo MD at [facility] Cage N/A: Spine Cervical [employer] 10/25/2028 [id number] / / [id number] Screw Bone 3.5mm 13mm Zevo Titanium Spine Cervical Anterior Variable Angle Self Drill - [id number] Implanted:Qty: 4 on 09/05/2023 by Bartolo Lazo MD at [facility] Screw N/A: Spine Cervical [employer] [id number] / / Agent Hemostatic Surgiflo 8 Ml Kit - [id number] Implanted:Qty: 1 on 09/05/2023 by Bartolo Lazo MD at [facility] Sealant N/A: Spine Cervical [employer] 08/30/2024 [id number] / / [id number] 19mm 1 Level Plate Implanted:Qty: 1 on 09/05/2023 by Bartolo Lazo MD at [facility] N/A: Spine Cervical [employer] [id number] / / Explanted Type Area Blindstitch Machine Operator Device Identifier Shelf Expiration Date Model / Serial / Lot Pin Distraction Medline 12mm - [id number] Explanted:Qty: 1 on 09/05/2023 by Bartolo Lazo MD at [facility] Pin N/A: Spine Cervical [employer] 05/02/2028 [id number] Pin Distraction Medline 12mm - [id number] Explanted:Qty: 1 on 09/05/2023 by Bartloo Lazo MD at [facility] Pin N/A: Spine Cervical [employer] 04/01/2028 [id number] Insurance Advance Directives * Full Code (Latest Code Status on File) Date Activated Date Inactivated Comments 09/03/2023 3:03 PM 09/06/2023 4:56 PM Care Teams Seat Maker Relationship Specialty Start Date End Date Radha Clarke MD [address] [place] [phone] PCP - General FAMILY PRACTICE 03/07/22
--- OUTSIDE RECORDS SUMMARY | 2024-12-18 11:51 | XMS_ITS | Encounter Summary ---
Author Organization [facility] Address [address] [place] [address] Care Team Providers Care Solutions Executive Cloud Sales Name Role Phone Stanley Rice MD Primary Care Provider [phone] Radha Clarke MD Primary Care Provider [phone] Encounter Details Date Type Department Care Team (Late st Contact Info) Description 09/07/2018 Abstract [facility]FL CONVERSION [address] [place] [address] , Generic Conversion, Social History Tobacco Use Types Packs/Day Years Used Date Smoking Tobacco: Never Assessed Comments Unknown Sex and Gender Information Value Date Recorded Sex Assigned at Not on file 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 Gender Identity Not on file Sexual Orientation Not on file documented as of this encounter Plan of Treatment Not on file documented as of this encounter Visit Diagnoses Not on filedocumented in this encounter Additional Health Concerns Infection Onset Date Last Indicated Resolved Time COVID-19 Rule Out 04/17/2020 04/17/2020 04/18/2020 10:39 PM QUENCHING MACHINE OPERATOR COVID-19 Rule Out 03/31/2021 03/31/2021 03/31/2021 7:19 PM QUENCHING MACHINE OPERATOR COVID-19 Rule Out 02/17/2023 02/17/2023 02/17/2023 9:27 AM QUENCHING MACHINE OPERATOR documented as of this encounter Care Teams Solutions Executive Cloud Sales Relationship Specialty Start Date End Date Stanley Rice MD PCP - General FAMILY PRACTICE 04/17/20 03/06/22 Radha Clarke MD [address] [place] [phone] PCP - General FAMILY PRACTICE 03/07/22 documented as of this encounter
--- OUTSIDE RECORDS SUMMARY | 2024-12-18 11:51 | XMS_ITS | Clinical Summary ---
Author Organization [facility] [employer] [place] Address [address] [place] [address] Care Team Providers Care School Cafeteria Cook Head Name Role Phone Unavailable Primary Care Provider [...] Hypertension Maternal Grandfather Renato Anemia Maternal Grandmother [place] Breast Cancer Maternal Grandmother Susana Cancer Maternal Grandmother Susana Breast Cancer Heart Disease Maternal Grandmother Susana hannon suffering from congestive heart failure. 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 Screw Uniplate Sd 14mm - Sload 18 Implanted:Qt y: 2 on 08/10/2020 by Ashvin Chapin MD at [facility] Screw N/A: Spine Cervical Anterior [employer] / LOAD 18 / Allograft Spacer Acf 7mm [id number] - [id number] Implanted:Qt y: 1 on 08/10/2020 by Ashvin Chapin MD at [facility] Tissue N/A: Spine Cervical Anterior [employer]OU 02/03/2025 [id number] / [id number] / Insurance RX [employer] Advance Directives For more information, please contact: [phone] * Full Code (Latest Code Status on File) Date Activated Date Inactivated Comments 08/10/2020 8:01 PM 08/11/2020 3:17 PM * Full Code Date Activated Date Inactivated Comments 08/10/2020 2:52 PM 08/10/2020 8:01 PM * Full Code Date Activated Date Inactivated Comments 08/26/2019 10:37 AM 08/26/2019 3:16 PM
== END 2024-12-18 11:56 | disposition home or self-care (01) ==
PROVIDERS: Emergency Provider Emergency Medicine; PCP Family Medicine
DX: F41.9 Anxiety disorder, unspecified (principal); Z87.891 Personal history of nicotine dependence
CPT/HCPCS: 99283; A9270